=== PATIENT | female | born 1950 | race Hispanic/Latino ===

== ENCOUNTER 2018-02-25 22:45 | Inpatient (IN) | payer MEDICARE ==
[~2018-02-25] VITALS: Ht 160 cm; Wt 98.4 kg
[~2018-02-25 22:45] MED LIST: ASPI-1181 PO; ATOR40TA69 PO; LEVO250T2 PO; LISI1TAB13 PO
[2018-02-25 22:58] LABS: BASOPHILS % (AUTO) 0.5 % (0.0-5.0); HEMATOCRIT 39.3 % (36-48); LYMPHOCYTES % (AUTO) 6.6 % (21.0-51.0); MEAN CORPUSCULAR HGB CONC 33.1 g/dL (32.0-36.0); MEAN CORPUSCULAR VOLUME 87.7 fL (79-99); MONOCYTES % (AUTO) 3.8 % (3.0-13.0); NEUTROPHILS % (AUTO) 89.1 % (40.0-77.0); PLATELET COUNT (AUTO) 255 K/uL (130-400); RED BLOOD CELL COUNT(AUTO) 4.48 MIL/uL (4.00-5.50); RED CELL DISTRIBUTION WIDTH 14.2 % (11.0-15.5); WHITE BLOOD COUNT (AUTO) 15.7 K/uL (4.8-10.8)
[2018-02-25] MEDS ORDERED: SODIUM CHLORIDE 0.9% 1000ML 1,000 ML IV ONE (23:00)
[2018-02-25] MEDS ORDERED: ZOSYN 3.375GM+NS 50ML 50 ML IV ONE (23:01)
[2018-02-25] MEDS ORDERED: SODIUM CHLORIDE 0.9% 50 ML IV ONE (23:01)
[2018-02-25] MEDS ORDERED: ACETAMINOPHEN-CODEINE ELIXIR 5 ML UDCUP ONE (23:07)
[2018-02-25 23:10] LABS: POTASSIUM 3.2 mmol/L (3.5-5.1)
[2018-02-25 23:12] LABS: ALBUMIN 3.5 g/dL (3.5-5.0); BILIRUBIN,TOTAL 0.6 mg/dL (0.2-1.0); TOTAL PROTEIN, SERUM 7.2 g/dL (6.0-8.3)
[2018-02-25] MEDS ORDERED: MORPHINE SULFATE 2 MG/ML 1ML SYG ONE (23:13)
[2018-02-25] MEDS ORDERED: ONDANSETRON HCL 4 MG/2 ML VIAL ONE (23:13)
[2018-02-25 23:25] LABS: APPEARANCE,URINE Clear (CLEAR); BILIRUBIN,URINE Negative (NEGATIVE); COLOR,URINE Yellow (YELLOW); GLUCOSE, URINE (UA) TRACE mg/dL (NEGATIVE); KETONES,URINE 15 mg/dL (NEGATIVE); LEUKOCYTE ESTERASE ,URINE Trace (NEGATIVE); NITRATE,URINE Negative (NEGATIVE); OCCULT BLOOD,URINE Negative (NEGATIVE); PH,URINE 6.5 (5.0-8.0); PROTEIN,URINE Trace (NEGATIVE)
[2018-02-25] MEDS ORDERED: IOHEXOL-350 75 ML VIAL IV ONE (23:28)
[2018-02-25 23:39] LABS: BACTERIA,URINE Few /HPF (None Seen); RBC,URINE 0-1 /HPF (0-1)
[2018-02-26] MEDS ORDERED: POTASSIUM CHLORIDE 10% ELIXIR 20 MEQ/15 ML UDCUP PO PRN (02:15)
[2018-02-26] MEDS ORDERED: GLUCAGON 1MG KIT 1 MG ML IM PRN (02:15)
[2018-02-26] MEDS ORDERED: LIDOCAINE HCL-MPF 1% 2ML VIAL IJ PRN (02:15)
[2018-02-26] MEDS ORDERED: ACETAMINOPHEN 650 MG SUPPOSITORY RC PRN ×2 (02:15)
[2018-02-26] MEDS ORDERED: DEXTROSE 50%-WATER 50 ML DISP.SYRIN IV PRN (02:15)
[2018-02-26] MEDS: SODIUM CHLORIDE 0.9% 1000ML 1,000 ML IV SCH (04:30)
[2018-02-26 04:40] VITALS: BP 164/79
[2018-02-26 05:16] LABS: HEMATOCRIT 42.3 % (36-48); MEAN CORPUSCULAR HEMOGLOBIN 28.1 pg (27.0-33.0); MEAN CORPUSCULAR HGB CONC 32.1 g/dL (32.0-36.0); MEAN CORPUSCULAR VOLUME 87.3 fL (79-99); PLATELET COUNT (AUTO) 260 K/uL (130-400); RED BLOOD CELL COUNT(AUTO) 4.84 MIL/uL (4.00-5.50); RED CELL DISTRIBUTION WIDTH 14.1 % (11.0-15.5)
[2018-02-26 05:32] LABS: ALBUMIN 3.5 g/dL (3.5-5.0); BILIRUBIN,TOTAL 0.6 mg/dL (0.2-1.0); CREATININE 1.1 mg/dL (0.5-1.5); POTASSIUM 3.4 mmol/L (3.5-5.1); TOTAL PROTEIN, SERUM 7.3 g/dL (6.0-8.3)
[2018-02-26] MEDS: INSULIN R NPO SSI SQ SCH ×3 (05:54→18:00)
[2018-02-26] MEDS ORDERED: MORPHINE SULFATE 4 MG/1ML SYG ONE (06:16)
[2018-02-26] MEDS: ONDANSETRON HCL MDV 20ML 2 MG/ML VIAL IVP PRN ×2 (06:29→12:33)
[2018-02-26 07:30] VITALS: BP 119/78
[2018-02-26] MEDS: ZOSYN 3.375GM+NS 50ML 50 ML IV SCH ×3 (07:55→23:08)
[2018-02-26] MEDS: FAMOTIDINE/PF 20 MG/2 ML VIAL IV SCH ×2 (09:13→21:40)
[2018-02-26 11:00] VITALS: BP 138/81
[2018-02-26 16:00] VITALS: BP 156/83
[2018-02-26] MEDS: ENOXAPARIN SODIUM 40 MG/0.4 ML SYRINGE SQ SCH (18:31)
[2018-02-26] MEDS ORDERED: AMLO5TAB7 PO (18:38)
[2018-02-26] MEDS ORDERED: LOSA25TA16 PO (18:38)
[2018-02-26 19:00] VITALS: BP 151/79
[2018-02-26 23:00] VITALS: BP 156/85
[2018-02-26] MEDS ORDERED: LIDOCAINE HCL MPF 1% 5ML VIAL ONE (23:39)
[2018-02-26] MEDS: POTASSIUM CHLORIDE 20MEQ/100ML 100 ML IV PRN (23:48)
[2018-02-27 03:00] VITALS: BP 165/94
[2018-02-27] MEDS ORDERED: LABETALOL 20 MG/4 ML DISP.SYRIN IV SCH (05:00)
[2018-02-27] MEDS: SODIUM CHLORIDE 0.9% 1000ML 1,000 ML IV SCH (05:09)
[2018-02-27] MEDS: INSULIN R NPO SSI SQ SCH ×4 (06:00→18:00)
[2018-02-27] MEDS: ZOSYN 3.375GM+NS 50ML 50 ML IV SCH ×3 (06:18→22:30)
[2018-02-27 07:00] VITALS: BP 166/98
[2018-02-27 07:43] LABS: BILIRUBIN,TOTAL 1.1 mg/dL (0.2-1.0); CREATININE 1.8 mg/dL (0.5-1.5); POTASSIUM 3.8 mmol/L (3.5-5.1)
[2018-02-27] MEDS: FAMOTIDINE/PF 20 MG/2 ML VIAL IV SCH ×2 (09:31→22:36)
[2018-02-27] MEDS: ENOXAPARIN SODIUM 40 MG/0.4 ML SYRINGE SQ SCH (09:37)
[2018-02-27] MEDS ORDERED: FUROSEMIDE 10 MG/ML 4ML VIAL IV SCH (10:45)
[2018-02-27 11:00] VITALS: BP 148/88
[2018-02-27 12:02] LABS: HEMATOCRIT 42.2 % (36-48); MEAN CORPUSCULAR HEMOGLOBIN 28.3 pg (27.0-33.0); MEAN CORPUSCULAR VOLUME 88.3 fL (79-99); PLATELET COUNT (AUTO) 234 K/uL (130-400); RED BLOOD CELL COUNT(AUTO) 4.78 MIL/uL (4.00-5.50); RED CELL DISTRIBUTION WIDTH 14.7 % (11.0-15.5); WHITE BLOOD COUNT (AUTO) 29.3 K/uL (4.8-10.8)
[2018-02-27 12:08] LABS: CREATININE 1.9 mg/dL (0.5-1.5); POTASSIUM 3.6 mmol/L (3.5-5.1)
[2018-02-27 16:00] VITALS: BP 167/89
[2018-02-27] MEDS: POTASSIUM CHLORIDE 20MEQ/100ML 100 ML IV PRN (18:19)
[2018-02-27 19:50] VITALS: BP 149/85
[2018-02-27 23:45] VITALS: BP 150/78
[2018-02-28 03:45] VITALS: BP 118/48
[2018-02-28] MEDS: INSULIN R NPO SSI SQ SCH ×4 (06:00→18:00)
[2018-02-28] MEDS ORDERED: MORPHINE SULFATE 4 MG/1ML SYG ONE (06:02)
[2018-02-28] MEDS: ZOSYN 3.375GM+NS 50ML 50 ML IV SCH ×3 (06:09→22:46)
[2018-02-28 06:15] LABS: CREATININE 2.4 mg/dL (0.5-1.5); POTASSIUM 3.9 mmol/L (3.5-5.1)
[2018-02-28 06:56] LABS: HEMATOCRIT 41.5 % (36-48); MEAN CORPUSCULAR HEMOGLOBIN 28.3 pg (27.0-33.0); MEAN CORPUSCULAR HGB CONC 31.8 g/dL (32.0-36.0); MEAN CORPUSCULAR VOLUME 89.3 fL (79-99); NUCLEATED RED BLOOD CELLS 0.1 % (0.0-0.19); PLATELET COUNT (AUTO) 221 K/uL (130-400); RED BLOOD CELL COUNT(AUTO) 4.64 MIL/uL (4.00-5.50); WHITE BLOOD COUNT (AUTO) 24.2 K/uL (4.8-10.8)
[2018-02-28] MEDS: ENOXAPARIN SODIUM 40 MG/0.4 ML SYRINGE SQ SCH (09:00)
[2018-02-28] MEDS: FAMOTIDINE/PF 20 MG/2 ML VIAL IV SCH ×2 (09:00→20:46)
[2018-02-28 11:00] VITALS: BP 121/65
[2018-02-28] MEDS ORDERED: LEVOFLOXACIN 500 MG/D5W 100 ML 100 ML IV SCH (11:00)
[2018-02-28] MEDS ORDERED: METOPROLOL TARTRATE 1 MG/ML 5ML VIAL IV PRN (11:00)
[2018-02-28] MEDS: SODIUM CHLORIDE 0.9% 1000ML 1,000 ML IV SCH (13:28)
[2018-02-28 16:00] VITALS: BP 130/63
[2018-02-28 19:30] VITALS: BP 148/61
[2018-02-28] MEDS: MORPHINE SULFATE 5 MG/ML VIAL IV PRN (20:42)
[2018-02-28 23:35] VITALS: BP 151/99
[2018-03-01 03:40] VITALS: BP 154/82
[2018-03-01] MEDS: INSULIN R NPO SSI SQ SCH ×4 (06:00→18:00)
[2018-03-01] MEDS: SODIUM CHLORIDE 0.9% 1000ML 1,000 ML IV SCH (07:00)
[2018-03-01 07:30] VITALS: BP 141/83
[2018-03-01] MEDS ORDERED: FUROSEMIDE 10 MG/ML 4ML VIAL IV SCH (07:45)
[2018-03-01] MEDS: LEVOFLOXACIN 250 MG/D5W 50ML 50 ML IVPB SCH (09:16)
[2018-03-01] MEDS: ENOXAPARIN SODIUM 40 MG/0.4 ML SYRINGE SQ SCH (09:16)
[2018-03-01] MEDS: FAMOTIDINE/PF 20 MG/2 ML VIAL IV SCH ×2 (09:17→20:12)
[2018-03-01 11:00] VITALS: BP 130/93
[2018-03-01] MEDS: ZOSYN 3.375GM+NS 50ML 50 ML IV SCH ×3 (11:12→22:51)
[2018-03-01] MEDS ORDERED: IOHEXOL-350 75 ML VIAL IV ONE (13:17)
[2018-03-01] MEDS ORDERED: DIATR MEGLU/DIATRIZOATE SODIUM 30 ML BOTTLE ONE ×2 (13:18→13:19)
[2018-03-01 16:00] VITALS: BP 147/95
[2018-03-01 19:44] VITALS: BP 162/90
[2018-03-01] MEDS: ONDANSETRON HCL MDV 20ML 2 MG/ML VIAL IVP PRN (23:02)
[2018-03-01] MEDS: MORPHINE SULFATE 5 MG/ML VIAL IV PRN (23:02)
[2018-03-01 23:53] VITALS: BP 132/89
[2018-03-02] MEDS: SODIUM CHLORIDE 0.9% 1000ML 1,000 ML IV SCH ×2 (03:12→22:47)
[2018-03-02 03:48] LABS: HEMATOCRIT 38.3 % (36-48); MEAN CORPUSCULAR HGB CONC 32.9 g/dL (32.0-36.0); MEAN CORPUSCULAR VOLUME 88.3 fL (79-99); PLATELET COUNT (AUTO) 260 K/uL (130-400); RED BLOOD CELL COUNT(AUTO) 4.34 MIL/uL (4.00-5.50); RED CELL DISTRIBUTION WIDTH 15.2 % (11.0-15.5); WHITE BLOOD COUNT (AUTO) 15.9 K/uL (4.8-10.8)
[2018-03-02 04:00] VITALS: BP 144/76
[2018-03-02 04:15] LABS: ALBUMIN 2.4 g/dL (3.5-5.0); BILIRUBIN,TOTAL 0.7 mg/dL (0.2-1.0); CREATININE 2.3 mg/dL (0.5-1.5); MAGNESIUM 2.6 mg/dL (1.80-2.40); POTASSIUM 3.7 mmol/L (3.5-5.1); TOTAL PROTEIN, SERUM 6.8 g/dL (6.0-8.3)
[2018-03-02] MEDS: ZOSYN 3.375GM+NS 50ML 50 ML IV SCH ×2 (05:57→15:31)
[2018-03-02] MEDS: INSULIN R NPO SSI SQ SCH ×4 (06:00→18:00)
[2018-03-02 08:00] VITALS: BP 143/84
[2018-03-02] MEDS: FAMOTIDINE/PF 20 MG/2 ML VIAL IV SCH ×2 (08:49→22:47)
[2018-03-02] MEDS: ENOXAPARIN SODIUM 40 MG/0.4 ML SYRINGE SQ SCH (08:49)
[2018-03-02] MEDS: LEVOFLOXACIN 250 MG/D5W 50ML 50 ML IVPB SCH (08:49)
[2018-03-02 12:00] VITALS: BP 139/86
[2018-03-02 16:00] VITALS: BP 135/87
[2018-03-02 19:40] VITALS: BP 137/85
[2018-03-02 23:10] VITALS: BP 146/81
[2018-03-03] VITALS (15 sets, daily range): BP systolic 96–138; BP diastolic 52–82
[2018-03-03] MEDS: ZOSYN 3.375GM+NS 50ML 50 ML IV SCH ×4 (00:09→22:35)
[2018-03-03 04:12] LABS: HEMATOCRIT 39.4 % (36-48); MEAN CORPUSCULAR HEMOGLOBIN 28.6 pg (27.0-33.0); MEAN CORPUSCULAR HGB CONC 32.2 g/dL (32.0-36.0); MEAN CORPUSCULAR VOLUME 88.7 fL (79-99); PLATELET COUNT (AUTO) 227 K/uL (130-400); RED BLOOD CELL COUNT(AUTO) 4.44 MIL/uL (4.00-5.50); RED CELL DISTRIBUTION WIDTH 15.1 % (11.0-15.5); WHITE BLOOD COUNT (AUTO) 13.7 K/uL (4.8-10.8)
[2018-03-03 04:44] LABS: ALBUMIN 2.3 g/dL (3.5-5.0); BILIRUBIN,TOTAL 0.7 mg/dL (0.2-1.0); CREATININE 1.9 mg/dL (0.5-1.5); POTASSIUM 3.7 mmol/L (3.5-5.1); TOTAL PROTEIN, SERUM 6.9 g/dL (6.0-8.3)
[2018-03-03] MEDS: INSULIN R NPO SSI SQ SCH ×4 (06:00→18:00)
[2018-03-03] MEDS: SODIUM CHLORIDE 0.9% 1000ML 1,000 ML IV SCH ×3 (06:31→17:29)
[2018-03-03] MEDS: LEVOFLOXACIN 250 MG/D5W 50ML 50 ML IVPB SCH (09:00)
[2018-03-03] MEDS: ENOXAPARIN SODIUM 40 MG/0.4 ML SYRINGE SQ SCH (09:00)
[2018-03-03] MEDS ORDERED: LIDOCAINE PF 2% 5ML ABBOJECT ONE (12:22)
[2018-03-03] MEDS ORDERED: DEXAMETHASONE SOD PHOSPHATE 10MG/ML 1ML VIAL ONE (12:22)
[2018-03-03] MEDS ORDERED: ONDANSETRON HCL 4 MG/2 ML VIAL ONE (12:22)
[2018-03-03] MEDS ORDERED: SUCCINYLCHOLINE 200MG/10ML SYR ONE (12:22)
[2018-03-03] MEDS ORDERED: MIDAZOLAM HCL 1 MG/ML 2ML VIAL ONE (12:23)
[2018-03-03] MEDS ORDERED: ROCURONIUM 10MG/1ML SYR 10 MG/ML ML ONE ×2 (12:24→13:49)
[2018-03-03] MEDS ORDERED: NEOSTIGMINE 5MG/5ML SYR IV ONE (12:24)
[2018-03-03] MEDS ORDERED: PROPOFOL 10 MG/ML 20ML VIAL IV ONE (12:24)
[2018-03-03] MEDS ORDERED: FENTANYL CITRATE PF 50 MCG/1 ML 2ML VIAL ONE ×2 (12:25→13:21)
[2018-03-03] MEDS ORDERED: GLYCOPYRROLATE 1 MG/5 ML SYRINGE ONE (12:27)
[2018-03-03] MEDS: FAMOTIDINE/PF 20 MG/2 ML VIAL IV SCH ×2 (12:29→20:59)
[2018-03-03] MEDS: CEFOXITIN SODIUM 2 GM VIAL ONE ×4 (12:30→14:55)
[2018-03-03] MEDS ORDERED: SUB TO ALBUTEROL 2.5MG/3ML NEBULES PER P&T IH ONE (12:40)
[2018-03-03] MEDS ORDERED: ALBUMIN (HUMAN) 5% 250 ML IV ONE ×2 (12:42→13:46)
[2018-03-03] MEDS ORDERED: FENTANYL 2500MCG+NS 250ML 250 ML IV PRN (15:15)
[2018-03-03] MEDS ORDERED: PROPOFOL 1000 MG/100 ML 100 ML IV ONE (15:21)
[2018-03-03 16:20] LABS: ABG BASE EXCESS -0.5 mmol/L (-2.0-3.0); ABG HCO3 23.1 mmol/L (21.0-28.0); ABG OXYGEN SATURATION 98.3 % (95.0-99.0); ABG PCO2 35 mmHg (32-45)
[2018-03-03] MEDS: PROPOFOL 1000 MG/100 ML 100 ML IV PRN (21:00)
[2018-03-04] VITALS (32 sets, daily range): BP systolic 102–142; BP diastolic 51–81
[2018-03-04] MEDS: MORPHINE SULFATE 5 MG/ML VIAL IV PRN ×3 (00:03→18:22)
[2018-03-04] MEDS: SODIUM CHLORIDE 0.9% 1000ML 1,000 ML IV SCH (03:44)
[2018-03-04] MEDS: PROPOFOL 1000 MG/100 ML 100 ML IV PRN (03:45)
[2018-03-04 04:35] LABS: BASOPHILS % (AUTO) 0.2 % (0.0-5.0); HEMATOCRIT 34.7 % (36-48); MEAN CORPUSCULAR HEMOGLOBIN 28.9 pg (27.0-33.0); MEAN CORPUSCULAR HGB CONC 32.5 g/dL (32.0-36.0); MEAN CORPUSCULAR VOLUME 88.7 fL (79-99); MONOCYTES % (AUTO) 12.9 % (3.0-13.0); NEUTROPHILS % (AUTO) 80.9 % (40.0-77.0); PLATELET COUNT (AUTO) 233 K/uL (130-400); RED BLOOD CELL COUNT(AUTO) 3.91 MIL/uL (4.00-5.50); RED CELL DISTRIBUTION WIDTH 14.8 % (11.0-15.5); WHITE BLOOD COUNT (AUTO) 12.6 K/uL (4.8-10.8)
[2018-03-04 04:44] LABS: CREATININE 1.3 mg/dL (0.5-1.5); POTASSIUM 3.4 mmol/L (3.5-5.1)
[2018-03-04] MEDS: INSULIN R NPO SSI SQ SCH ×4 (06:00→18:00)
[2018-03-04] MEDS: ZOSYN 3.375GM+NS 50ML 50 ML IV SCH ×3 (06:11→23:04)
[2018-03-04] MEDS: POTASSIUM CHLORIDE 20MEQ/100ML 100 ML IV PRN (06:34)
[2018-03-04] MEDS: ONDANSETRON HCL MDV 20ML 2 MG/ML VIAL IVP PRN (09:04)
[2018-03-04] MEDS: ENOXAPARIN SODIUM 40 MG/0.4 ML SYRINGE SQ SCH (09:16)
[2018-03-04] MEDS: FAMOTIDINE/PF 20 MG/2 ML VIAL IV SCH ×2 (09:16→21:09)
[2018-03-04] MEDS: LEVOFLOXACIN 250 MG/D5W 50ML 50 ML IVPB SCH (09:17)
[2018-03-04] MEDS: DEXTROSE 5%-WATER 1,000 ML IV SCH ×2 (11:05→21:09)
[2018-03-04 11:30] LABS: ABG BASE EXCESS 2.8 mmol/L (-2.0-3.0); ABG HCO3 27.1 mmol/L (21.0-28.0); ABG OXYGEN SATURATION 97.1 % (95.0-99.0); ABG PCO2 41 mmHg (32-45)
[2018-03-05] VITALS (24 sets, daily range): BP systolic 104–151; BP diastolic 45–88
[2018-03-05] MEDS: INSULIN R NPO SSI SQ SCH ×4 (05:58→18:00)
[2018-03-05 06:02] LABS: EOSINOPHILS % (AUTO) 0.2 % (0.0-8.0); LYMPHOCYTES % (AUTO) 11.2 % (21.0-51.0); MEAN CORPUSCULAR HEMOGLOBIN 28.5 pg (27.0-33.0); MEAN CORPUSCULAR HGB CONC 32.1 g/dL (32.0-36.0); MEAN CORPUSCULAR VOLUME 88.8 fL (79-99); MONOCYTES % (AUTO) 13.2 % (3.0-13.0); NEUTROPHILS % (AUTO) 75.4 % (40.0-77.0); PLATELET COUNT (AUTO) 202 K/uL (130-400); RED BLOOD CELL COUNT(AUTO) 3.83 MIL/uL (4.00-5.50); RED CELL DISTRIBUTION WIDTH 15.3 % (11.0-15.5); WHITE BLOOD COUNT (AUTO) 12.8 K/uL (4.8-10.8)
[2018-03-05 06:08] LABS: POTASSIUM 3.9 mmol/L (3.5-5.1)
[2018-03-05] MEDS: ZOSYN 3.375GM+NS 50ML 50 ML IV SCH ×3 (06:32→23:33)
[2018-03-05] MEDS: LEVOFLOXACIN 250 MG/D5W 50ML 50 ML IVPB SCH (07:55)
[2018-03-05] MEDS: FAMOTIDINE/PF 20 MG/2 ML VIAL IV SCH ×2 (07:55→19:52)
[2018-03-05] MEDS: ENOXAPARIN SODIUM 40 MG/0.4 ML SYRINGE SQ SCH (07:56)
[2018-03-05] MEDS: ONDANSETRON HCL MDV 20ML 2 MG/ML VIAL IVP PRN (07:56)
[2018-03-05] MEDS: MORPHINE SULFATE 5 MG/ML VIAL IV PRN ×2 (07:57→19:26)
[2018-03-05] MEDS: DEXTROSE 5%-WATER 1,000 ML IV SCH (13:26)
[2018-03-06] VITALS (15 sets, daily range): BP systolic 129–148; BP diastolic 59–81
[2018-03-06] MEDS: DEXTROSE 5%-WATER 1,000 ML IV SCH (01:11)
[2018-03-06] MEDS: MORPHINE SULFATE 5 MG/ML VIAL IV PRN (01:19)
[2018-03-06 04:08] LABS: BASOPHILS % (AUTO) 0.1 % (0.0-5.0); EOSINOPHILS % (AUTO) 1.4 % (0.0-8.0); HEMATOCRIT 32.7 % (36-48); LYMPHOCYTES % (AUTO) 13.1 % (21.0-51.0); MEAN CORPUSCULAR HEMOGLOBIN 29.2 pg (27.0-33.0); MEAN CORPUSCULAR HGB CONC 32.7 g/dL (32.0-36.0); MEAN CORPUSCULAR VOLUME 89.5 fL (79-99); MONOCYTES % (AUTO) 10.4 % (3.0-13.0); PLATELET COUNT (AUTO) 181 K/uL (130-400); RED BLOOD CELL COUNT(AUTO) 3.66 MIL/uL (4.00-5.50); RED CELL DISTRIBUTION WIDTH 14.7 % (11.0-15.5); WHITE BLOOD COUNT (AUTO) 10.6 K/uL (4.8-10.8)
[2018-03-06 04:21] LABS: CREATININE 0.8 mg/dL (0.5-1.5); POTASSIUM 3.9 mmol/L (3.5-5.1)
[2018-03-06] MEDS: INSULIN R NPO SSI SQ SCH ×4 (06:00→18:00)
[2018-03-06] MEDS ORDERED: SODIUM CHLORIDE 0.9% 100 ML IV ONE (06:06)
[2018-03-06] MEDS: ZOSYN 3.375GM+NS 50ML 50 ML IV SCH ×3 (06:17→22:41)
[2018-03-06] MEDS: LEVOFLOXACIN 250 MG/D5W 50ML 50 ML IVPB SCH (08:20)
[2018-03-06] MEDS: FAMOTIDINE/PF 20 MG/2 ML VIAL IV SCH ×2 (08:20→20:46)
[2018-03-06] MEDS: ENOXAPARIN SODIUM 40 MG/0.4 ML SYRINGE SQ SCH (08:20)
[2018-03-06] MEDS: ALBUTEROL SULFATE 0.083% 2.5 MG/3 ML INH IH PRN (21:07)
[2018-03-07 02:55] VITALS: BP 140/75
[2018-03-07] MEDS: INSULIN R NPO SSI SQ SCH ×5 (06:00→23:42)
[2018-03-07] MEDS: ZOSYN 3.375GM+NS 50ML 50 ML IV SCH ×3 (06:15→22:56)
[2018-03-07] MEDS: ALBUTEROL SULFATE 0.083% 2.5 MG/3 ML INH IH PRN ×2 (06:26→18:16)
[2018-03-07 07:46] VITALS: BP 143/75
[2018-03-07] MEDS: LEVOFLOXACIN 250 MG/D5W 50ML 50 ML IVPB SCH (08:11)
[2018-03-07] MEDS: FAMOTIDINE/PF 20 MG/2 ML VIAL IV SCH ×2 (08:11→20:45)
[2018-03-07] MEDS: ENOXAPARIN SODIUM 40 MG/0.4 ML SYRINGE SQ SCH (08:11)
[2018-03-07 12:13] VITALS: BP 145/76
[2018-03-07] MEDS: ONDANSETRON HCL MDV 20ML 2 MG/ML VIAL IVP PRN (15:25)
[2018-03-07] MEDS: MORPHINE SULFATE 5 MG/ML VIAL IV PRN (15:43)
[2018-03-07 16:07] VITALS: BP 140/68
[2018-03-07] MEDS: DEXTROSE 5%-WATER 1,000 ML IV SCH (16:34)
[2018-03-07 19:50] VITALS: BP 152/86
[2018-03-07 23:59] VITALS: BP 141/75
[2018-03-08] MEDS: ALBUTEROL SULFATE 0.083% 2.5 MG/3 ML INH IH PRN ×4 (02:25→13:55)
[2018-03-08 04:25] VITALS: BP 152/82
[2018-03-08] MEDS: DEXTROSE 5%-WATER 1,000 ML IV SCH (04:44)
[2018-03-08] MEDS: INSULIN R NPO SSI SQ SCH ×2 (06:00→13:06)
[2018-03-08] MEDS: ZOSYN 3.375GM+NS 50ML 50 ML IV SCH (06:11)
[2018-03-08 06:13] LABS: MEAN CORPUSCULAR HGB CONC 32.5 g/dL (32.0-36.0); MEAN CORPUSCULAR VOLUME 89.3 fL (79-99); PLATELET COUNT (AUTO) 128 K/uL (130-400); RED BLOOD CELL COUNT(AUTO) 3.92 MIL/uL (4.00-5.50); RED CELL DISTRIBUTION WIDTH 14.3 % (11.0-15.5); WHITE BLOOD COUNT (AUTO) 17.7 K/uL (4.8-10.8)
[2018-03-08 07:00] VITALS: BP 125/76
[2018-03-08 07:05] LABS: CREATININE 0.9 mg/dL (0.5-1.5); MAGNESIUM 2.1 mg/dL (1.80-2.40); PHOSPHORUS 2.8 mg/dL (2.5-4.9); POTASSIUM 3.6 mmol/L (3.5-5.1)
[2018-03-08] MEDS: FAMOTIDINE/PF 20 MG/2 ML VIAL IV SCH (08:46)
[2018-03-08] MEDS: POTASSIUM CHLORIDE 20 MEQ ERTAB PO PRN ×2 (08:46→12:50)
[2018-03-08] MEDS: ENOXAPARIN SODIUM 40 MG/0.4 ML SYRINGE SQ SCH (08:48)
[2018-03-08 11:00] VITALS: BP 138/72
== END 2018-03-08 14:24 | DRG 853 ==
LOC: EDH 22:45 → EDHIP 02-26 01:23 → OBSVTOIN 02-26 01:23 → 3BH 02-26 02:38 → 2CH 03-03 15:27 → 3AH 03-06 15:03
PROVIDERS: ADMIT Hospitalist; ATTEND Hospitalist
PROC: 5A1935Z Respiratory Ventilation, Less than 24 Consecutive Hours (ICD-10-PCS; 2018-03-03)
PROC: 0BH17EZ Insertion of Endotracheal Airway into Trachea, Via Natural or Artificial Opening (ICD-10-PCS; 2018-03-03)
PROC: 0DT80ZZ Resection of Small Intestine, Open Approach (ICD-10-PCS; principal; 2018-03-03 12:30)
PROC: 0DN80ZZ Release Small Intestine, Open Approach (ICD-10-PCS; 2018-03-03 12:30)
PROC: 0WQF0ZZ Repair Abdominal Wall, Open Approach (ICD-10-PCS; 2018-03-03 12:30)
DX: A41.9 Sepsis, unspecified organism (principal); N17.0 Acute kidney failure with tubular necrosis; J96.00 Acute respiratory failure, unspecified whether with hypoxia or hypercapnia; K56.609 Unspecified intestinal obstruction, unspecified as to partial versus complete obstruction; E87.0 Hyperosmolality and hypernatremia; K43.9 Ventral hernia without obstruction or gangrene; K57.30 Diverticulosis of large intestine without perforation or abscess without bleeding; E86.0 Dehydration; D64.9 Anemia, unspecified; E11.22 Type 2 diabetes mellitus with diabetic chronic kidney disease; E66.01 Morbid (severe) obesity due to excess calories; E78.5 Hyperlipidemia, unspecified; E87.6 Hypokalemia; E87.70 Fluid overload, unspecified; N18.9 Chronic kidney disease, unspecified; I12.9 Hypertensive chronic kidney disease with stage 1 through stage 4 chronic kidney disease, or unspecified chronic kidney disease; Z68.38 Body mass index [BMI] 38.0-38.9, adult; K66.0 Peritoneal adhesions (postprocedural) (postinfection); Z83.3 Family history of diabetes mellitus; Z82.49 Family history of ischemic heart disease and other diseases of the circulatory system
CPT/HCPCS: 36415; 36600; 71045; 74176; 74177; 80048; 80053; 81001; 82803; 82948; 83605; 83690; 83735; 84100; 84484; 85025; 85027; 88302; 88307; 93005; 94002; 94003; 94150; 94640; 94664; 97039; A4218; J0330; J0694; J1100; J1650; J1815; J1940; J1956; J2001; J2250; J2270; J2405; J2543; J2704; J2710; J3010; J3480; J3490; J7030; J7070; P9045; Q9963; Q9967